=== PATIENT | female | born 1955 | race Caucasian/White ===

== ENCOUNTER 2024-08-30 16:17 | Emergency (ER) | payer MEDICARE, OTHER, SELFPAY ==
[2024-08-30 16:21] VITALS: BP 147/91
[2024-08-30 16:39] LABS: % Basophils 0.8 % (0-2); % Eosinophils 1.9 % (0-6); % Lymphocytes 36.2 % (20.5-51.1); % Monocytes 9.6 % (1.7-9.3); % Neutrophils 51.5 % (42.2-75.2); Absolute Eosinophils 0.1 10^3/uL (0-0.7); Absolute Lymphocytes 1.9 10^3/uL (1.2-3.4); Absolute Monocytes 0.5 10^3/uL (0.1-0.6); Absolute Neutrophils 2.7 10^3/uL (1.4-6.5); Hematocrit 33.8 % (37.0-47.0); Hemoglobin 11.7 g/dL (12.0-16.0); Mean Corp Hgb Conc. 34.6 g/dL (33.0-37.0); Mean Corpuscular Hgb 29.1 pg (27.0-31.0); Mean Corpuscular Volume 84.1 fL (81.0-99.0); Mean Platelet Volume 8.3 fL (7.4-10.4); Nucleated Red Blood Cells % 0 %; Platelet Count 314 10^3/uL (130-400); Red Blood Cell Count 4.02 10^6/uL (4.20-5.40); Red Cell Dist. Width 13.2 % (11.5-14.5); White Blood Cell Count 5.2 10^3/uL (4.8-10.8)
[2024-08-30 16:52] LABS: ALT (SGPT) 31 U/L (0-35); AST (SGOT) 29 U/L (14-36); Albumin 4.5 g/dl (3.5-5.0); Alkaline Phosphatase 103 U/L (38-126); Blood Urea Nitrogen 19 mg/dl (7-17); Calcium 9.8 mg/dl (8.4-10.2); Carbon Dioxide 25 mmol/L (22-30); Chloride 104 mmol/L (98-107); Glucose 112 mg/dl (70-99); Lipase 112 U/L (23-300); Potassium 3.7 mmol/L (3.5-5.1); Sodium 142 mmol/L (135-145); Total Bilirubin 0.5 mg/dl (0.2-1.3); Total Protein 7.4 g/dl (6.3-8.2); eGFR > 60.00
[2024-08-30 17:01] LABS: Troponin I < 0.012 ng/ml
--- NOTE | 2024-08-30 17:58 | ED.GENMED ---
History of Present Illness
General
Chief Complaint: Abdominal Pain
Time Seen by Provider: 08/30/24 17:37
History of Present Illness
History of Present Illness:
Patient is a 69-year-old woman with history of eosinophilic esophagitis, reflux, anxiety presenting to the emergency department abdominal pain. Patient states for the past few weeks she been having epigastric abdominal pain that is burning in
nature. It radiates to her back. She been having some bloating associated with it. It worsens throughout the day. She does note that the pain worsens when she lies flat and travels into her chest that she gets a metallic taste in her mouth. She
has been taking famotidine and omeprazole daily without any relief. Has also tried Tums without relief. Per chart review patient's last endoscopy was July of last year. She does follow with GI. No shortness of breath nausea vomiting or
diarrhea. No alcohol use or drug use. No prior abdominal surgeries.
Phy Exam
Physical Exam
Physical Exam:
GENERAL: in no acute distress
HEENT: normocephalic, extraocular movements intact, moist oral mucosa
NECK: normal inspection
RESPIRATORY: no respiratory distress, clear to auscultation bilaterally
CARDIOVASCULAR: regular rate and rhythm
ABDOMEN/: soft, non-distended, epigastric tenderness to palpation, no rebound or guarding
EXTREMITIES: non-tender, no edema/swelling
NEUROLOGIC: awake and alert, moves all extremities
SKIN: warm
Course
Orders/Labs/Results
Orders:
Orders
08/30/24 16:24
Electrocardiogram (*1) Urgent
Reason for Study: Abdominal Pain
08/30/24 16:25
EKG- Treatment ONCE
08/30/24 16:32
Complete Blood Count/With Diff Urgent
Comprehensive Metabolic Panel Urgent
Lipase Urgent
Troponin I Urgent
08/30/24 17:57
Famotidine [Pepcid] 40 mg PO NOW STA
Mag Hydrox/Al Hydrox/Simeth [Maalox] 30 ml PO NOW STA
08/30/24 17:58
CT Abd/pelvis W Iv Cont Urgent
Comment:
Reason For Exam: epigastric pain, hx esophagitis
Viscous Lidocaine 2% [Xylocaine Viscous Cup] 15 ml PO ONCE ONE
Abnormal Lab Results
08/30/24
16:32
RBC 4.02 L 10^6/uL
(4.20-5.40)
Hgb 11.7 L g/dL
(12.0-16.0)
Hct 33.8 L %
(37.0-47.0)
Monocytes % 9.6 H %
(1.7-9.3)
BUN 19 H mg/dl
(7-17)
Glucose 112 H mg/dl
(70-99)
08/30/24 16:32
08/30/24 16:32
Vital Signs
Initial and Last Documented VS:
Initial Vital Signs
Temp Pulse Resp BP Pulse Ox
98.4 F 83 18 147/91 99
08/30/24 16:21 08/30/24 16:21 08/30/24 16:21 08/30/24 16:21 08/30/24 16:21
Last Documented Vital Signs
Temp Pulse Resp BP Pulse Ox
98.4 F 65 18 147/91 98
08/30/24 16:21 08/30/24 20:00 08/30/24 20:00 08/30/24 16:21 08/30/24 20:00
MDM/Problems Addressed
Differential Diagnosis Includes:
Patient is a 69-year-old woman with history of esophagitis and reflux presenting to the emergency department with burning epigastric abdominal pain that radiates to her back along with bloating. Vitals unremarkable and exam does show very mild
epigastric tenderness. Differential consists of gastritis versus peptic ulcer disease versus atypical ACS. Could be pancreatitis or gallbladder etiology though less likely. Vitals obtained prior to evaluation shows a normal lipase and LFTs.
Troponin is negative. EKG per my interpretation normal sinus rhythm. Will obtain CT scan of the abdomen. Will give GI cocktail.
*Critical Care Note
Total Time (30-74mins, 75-104mins- exclusive of procedures): Not Applicable
Update Note
Update Note:
CT scan consistent with gastritis. Patient's pain has improved after the medication. Will discharge at this time with strict return precautions given.
ED Attending Note
-
Portions of this chart may have been created with voice recognition software.� Occasional wrong word or��sound alike� substitutions may have occurred due to the inherent limitations of voice recognition software.
Discharge Plan
Departure
Patient Disposition: Home (Routine Discharge)
Date of Disposition: 08/30/24
Time of Disposition: 21:03
Patient with high blood pressure during this ER visit?: No
Discharge Problem:
Gastritis
Instructions: Acid Reflux and GERD in Adults (DC), Gastritis (DC)
Prescriptions:
No Action
omeprazole 40 MG capsule,delayed release(DR/EC)
40 mg PO DAILY
cholecalciferol (vitamin D3) [Vitamin D3] 1,000 UNIT capsule
1,000 unit PO DAILY
geriatric [id number]-bdcs-sbig [Spectravite Senior] 1 EACH tablet
1 ea PO DAILY
escitalopram oxalate 20 MG tablet
20 mg PO DAILY
Ca-D3-mag oa-gjhx-brn-sylvain-bor [Calcium 600-D3 Plus (mag-zinc)] 1 EACH tablet
2 ea PO DAILY
zinc amino acid chelate 50 MG tablet
50 mg PO DAILY
Nutrafol For Woman
4 tab PO DAILY
atorvastatin 40 MG tablet
40 mg PO HS
finasteride 5 MG tablet
2.5 mg PO DAILY
melatonin 5 MG tablet
5 mg PO HS
Fluticasone Propionate
5 mcg inhalation PRN PRN (Reason: nasal congestion)
Metronidazole
1 applic topical DAILY
Rogaine
5 % topical HS
sennosides [senna] 1 TABLET tablet
2 tab PO BID 0RF
magnesium hydroxide 30 ML suspension
30 ml PO DAILYPRN PRN (Reason: constipation) 0RF
aspirin 325 MG tablet,delayed release (DR/EC)
325 mg PO DAILY 0RF
docusate sodium 100 MG capsule
100 mg PO BID 0RF
acetaminophen [Tylenol] 325 MG capsule
650 mg PO QID Qty: 1 0RF
Rx Instructions:
STANDING ORDER
naproxen sodium 220 MG capsule
220 mg PO BID Qty: 0 0RF
Rx Instructions:
*TAKE WITH FOOD
*DO NOT TAKE WITHIN 2HOURS OF ASA
oxycodone 5 MG tablet
5 mg PO Q4HPRN PRN (Reason: moderate-severe pain) Qty: 35 0RF
Rx Instructions:
1 tab moderate pain or 2 if pain severe
dx tka
ongoing therapy
azithromycin [Zithromax] 250 mg tablet
250 mg PO DAILY 4 Days Qty: 4 0RF
Referrals:
Vic Brasher MD [Family Provider] -
Activity Restrictions/Additional Instructions:
You were evaluated in the Emergency Department today for epigastric pain, which is most likely due to irritation of the lining of your stomach. Your symptoms improved with medication in the ED. You can take Mylanta, which is available over the
counter, to help manage your symptoms. Avoid spicy or acidic foods.
Please follow up with your primary care physician within two days As well as your GI doctor as we discussed.
Return to the Emergency Department if you experience shortness of breath, worsening or uncontrolled abdominal or chest pain, headache, light headedness, feeling faint, nausea, vomiting, bloody vomit or stools, black tarry stools, or any other
concerning symptoms.
Thank you for choosing us for your care.
Interventions
Interventions:
*Risk Screen - Suicide Last Done: 08/30/24 16:21
*General Assessment Last Done: 08/30/24 16:21
*Neglect/Abuse Screening Last Done: 08/30/24 16:21
ED- Fall Risk Assessment Last Done: 08/30/24 17:23
WP-Tionmc-Xuqiyqzicc Assessment Last Done: 08/30/24 17:23
Discharge Date and Time
Print Language: SETSWANA
[2024-08-30] MEDS: XYLOCAINE VISCOUS CUP 15 ML PO (18:09)
[2024-08-30] MEDS: PEPCID 40 MG PO (18:09)
[2024-08-30] MEDS: MAALOX 30 ML PO (18:09)
[2024-08-30 21:19] VITALS: BP 135/79
== END 2024-08-30 21:20 | disposition home or self-care (01) ==
LOC: EMR 16:17
PROVIDERS: Emergency Medicine; EMERGENCY PHYSICIAN Student in an Organized Health Care Education/Training Program; FAMILY PHYSICIAN Internal Medicine Geriatric Medicine
DX: K29.00 Acute gastritis without bleeding (principal); R14.0 Abdominal distension (gaseous); F41.9 Anxiety disorder, unspecified; K21.00 Gastro-esophageal reflux disease with esophagitis, without bleeding; Z79.899 Other long term (current) drug therapy; Z79.82 Long term (current) use of aspirin; Z88.6 Allergy status to analgesic agent; Z88.8 Allergy status to other drugs, medicaments and biological substances; Z91.048 Other nonmedicinal substance allergy status
CPT/HCPCS: 99284; 74177; 80053; 83690; 84484; 85025; 93005; Q9967

== ENCOUNTER → 2024-09-14 18:35 | Outpatient (REF) | payer MEDICARE, OTHER, SELFPAY | LOC: WDC 18:35 | PROVIDERS: ATTENDING PHYSICIAN Obstetrics & Gynecology; FAMILY PHYSICIAN Internal Medicine Geriatric Medicine | DX: Z12.31 Encounter for screening mammogram for malignant neoplasm of breast (principal) | CPT/HCPCS: 77063; 77067 ==

== ENCOUNTER → 2024-11-16 14:08 | Outpatient (REF) | payer MEDICARE, OTHER, SELFPAY | LOC: RAD 14:08 | PROVIDERS: ATTENDING PHYSICIAN Physician Assistant; FAMILY PHYSICIAN Internal Medicine Geriatric Medicine | DX: M81.0 Age-related osteoporosis without current pathological fracture (principal); Z13.820 Encounter for screening for osteoporosis | CPT/HCPCS: 77080 ==

== ENCOUNTER → 2024-11-26 09:13 | Outpatient (REF) | payer MEDICARE, OTHER, SELFPAY | LOC: HWRAD 09:13 | PROVIDERS: ATTENDING PHYSICIAN Specialist; FAMILY PHYSICIAN Internal Medicine Geriatric Medicine | DX: R10.13 Epigastric pain (principal) | CPT/HCPCS: 76700 ==

== ENCOUNTER → 2025-09-20 12:19 | Outpatient (REF) | payer MEDICARE, OTHER, SELFPAY | LOC: WDC 12:19 | PROVIDERS: ATTENDING PHYSICIAN Obstetrics & Gynecology; FAMILY PHYSICIAN Internal Medicine Geriatric Medicine | DX: Z12.31 Encounter for screening mammogram for malignant neoplasm of breast (principal) | CPT/HCPCS: 77063; 77067 ==